=== PATIENT | female | born 1940 | race Caucasian/White ===

== ENCOUNTER → 2016-07-24 | Outpatient (CLI) | payer MEDICARE, BC ==
[~2016-07-24] MED LIST: CALCIUM1 CAP PO; DULCOLAX5 MG PO; HCTZ; MULTIPLE VITAMI1 TAB PO; VESICARE5 MG PO; VITAMIN C BUFF500 MG PO
== END ==
LOC: MC.RAD 13:20
DX: Z12.31 Encounter for screening mammogram for malignant neoplasm of breast (principal)

== ENCOUNTER → 2017-07-27 | Outpatient (CLI) | payer MEDICARE, BC | LOC: MC.RAD 14:32 | DX: Z12.31 Encounter for screening mammogram for malignant neoplasm of breast (principal) ==

== ENCOUNTER 2017-09-20 08:00 | Outpatient (RCR) | payer MEDICARE, BC ==
[2017-09-14 13:44] VITALS: BP 131/48; PULSE 55; TEMP 97.8
[2017-09-15 11:59] VITALS: BP 127/52; PULSE 53; TEMP 97.9
[2017-09-16 09:53] VITALS: BP 138/51; PULSE 58; TEMP 97.1
[2017-09-17 07:59] VITALS: BP 130/50; PULSE 74; TEMP 98
[2017-09-18 08:01] VITALS: BP 137/51; PULSE 51
[2017-09-19 08:59] VITALS: BP 123/48; PULSE 55; TEMP 98.4
[~2017-09-20] VITALS: Ht 165.1 cm; Wt 62.5 kg
[~2017-09-20 08:00] MED LIST changes: +CRANBERRY450 MG PO; -HCTZ; +HCTZ 25MG TAB25 MG PO; +MIRALAX PA17 GM/Dose PO; +NORVASC 5MG5 MG/TAB PO; +PRINIVIL5 MG PO; +PROBIOTIC FORMU1 CAP PO
[2017-09-20 08:01] VITALS: BP 122/52; PULSE 50; TEMP 97.6
== END 2017-09-20 09:31 | disposition home or self-care (01) ==
LOC: EUO 08:00
DX: N39.0 Urinary tract infection, site not specified (principal)
CPT/HCPCS: J1335; J7050

== ENCOUNTER → 2017-11-19 | Outpatient (CLI) | payer MEDICARE, BC | LOC: COL.RAD 11-13 08:15 | DX: N30.20 Other chronic cystitis without hematuria (principal) ==

== ENCOUNTER → 2018-09-02 | Outpatient (CLI) | payer MEDICARE, BC | LOC: MC.RAD 11:15 | DX: Z12.31 Encounter for screening mammogram for malignant neoplasm of breast (principal) ==

== ENCOUNTER 2019-03-17 14:00 | Outpatient (CLI) | payer MEDICARE, BC ==
[~2019-03-17] VITALS: Ht 165.1 cm; Wt 63.0 kg
[~2019-03-17 14:00] MED LIST changes: +CALCIUM 600MG+D1 TAB PO; -CALCIUM1 CAP PO
[2019-03-17 14:12] VITALS: BP 142/53; PULSE 58; TEMP 97.4
[2019-03-17] MEDS ORDERED: ARICEPT 5MG PO (14:17)
[2019-03-17] MEDS ORDERED: ESTRACE0.1 MG/GM VG (14:20)
[2019-03-17] MEDS ORDERED: NORVASC2.5 MG PO (14:21)
--- NOTE | 2019-03-17 14:45 | NUR ---
Pt gerry Prolia well. Pt discharged per ambulation.
== END 2019-03-17 14:46 | disposition home or self-care (01) ==
LOC: EUO 14:00
DX: M81.0 Age-related osteoporosis without current pathological fracture (principal)
CPT/HCPCS: J0897

== ENCOUNTER 2019-08-31 14:32 | Outpatient (CLI) | payer MEDICARE, BC ==
[~2019-08-31] VITALS: Ht 165.1 cm; Wt 63.7 kg
[~2019-08-31 14:32] MED LIST changes: +ARICEPT 5MG PO; +ESTRACE0.1 MG/GM VG; +MULTIPLE VITAMI1 TA5 PO; -MULTIPLE VITAMI1 TAB PO; +NORVASC2.5 MG PO
[2019-08-31] MEDS ORDERED: BACTRIM DS 8001 TAB PO (15:18)
[2019-08-31 15:19] VITALS: BP 182/62; PULSE 57; TEMP 98.1
== END 2019-08-31 16:18 | disposition home or self-care (01) ==
LOC: EUO 14:32
DX: M81.0 Age-related osteoporosis without current pathological fracture (principal)
CPT/HCPCS: J0897

== ENCOUNTER → 2019-10-10 | Outpatient (CLI) | payer MEDICARE, BC ==
[~2019-10-10] MED LIST changes: +BACTRIM DS 8001 TAB PO
== END ==
LOC: MC.RAD 13:28
DX: Z12.31 Encounter for screening mammogram for malignant neoplasm of breast (principal)

== ENCOUNTER 2020-02-15 17:44 | Emergency (ER) | payer MEDICARE, BC ==
[~2020-02-15] VITALS: Ht 165.1 cm; Wt 61.4 kg
[2020-02-15 18:21] VITALS: TEMP 97.4
[2020-02-15 20:43] VITALS: BP 106/88; PULSE 80
== END 2020-02-15 20:43 | disposition home or self-care (01) ==
LOC: COL.ER 17:44
DX: K59.03 Drug induced constipation (principal); T40.2X5A Adverse effect of other opioids, initial encounter; I10 Essential (primary) hypertension; Z96.653 Presence of artificial knee joint, bilateral; Z88.1 Allergy status to other antibiotic agents
CPT/HCPCS: J7030

== ENCOUNTER 2020-03-15 11:18 | Outpatient (CLI) | payer MEDICARE, BC ==
[~2020-03-15] VITALS: Ht 165.1 cm; Wt 60.8 kg
[2020-03-15] MEDS ORDERED: PRINCIPEN500 MG PO (11:37)
[2020-03-15 11:44] VITALS: BP 130/78; PULSE 67; TEMP 97.7
== END 2020-03-15 12:04 | disposition home or self-care (01) ==
LOC: EUO 11:18
DX: M81.0 Age-related osteoporosis without current pathological fracture (principal)
CPT/HCPCS: J0897

== ENCOUNTER 2020-09-12 15:12 | Outpatient (CLI) | payer MEDICARE, BC ==
[~2020-09-12] VITALS: Ht 165.1 cm; Wt 64.0 kg
[~2020-09-12 15:12] MED LIST changes: +PRINCIPEN500 MG PO
[2020-09-12 15:52] VITALS: BP 125/65; PULSE 52; TEMP 97.7
== END 2020-09-12 15:53 | disposition home or self-care (01) ==
LOC: EUO 15:12
DX: M81.0 Age-related osteoporosis without current pathological fracture (principal)
CPT/HCPCS: J0897

== ENCOUNTER → 2020-11-06 | Outpatient (CLI) | payer MEDICARE, BC | LOC: MC.RAD 10-10 13:30 | DX: Z12.31 Encounter for screening mammogram for malignant neoplasm of breast (principal) ==

== ENCOUNTER 2021-03-25 15:59 | Outpatient (CLI) | payer MEDICARE, BC ==
[~2021-03-25] VITALS: Ht 165.1 cm; Wt 67.8 kg
[2021-03-25 16:11] VITALS: BP 145/70; PULSE 61; TEMP 97.6
== END 2021-03-27 10:18 ==
LOC: EUO 15:59
DX: M81.0 Age-related osteoporosis without current pathological fracture (principal)
CPT/HCPCS: J0897

== ENCOUNTER → 2021-07-15 | Outpatient (CLI) | payer MEDICARE, BC | LOC: COL.LAB 10:05 | DX: Z01.812 Encounter for preprocedural laboratory examination (principal); Z20.822 Contact with and (suspected) exposure to COVID-19 ==

== ENCOUNTER 2021-09-25 15:06 | Outpatient (CLI) | payer MEDICARE, BC ==
[~2021-09-25] VITALS: Ht 165.1 cm; Wt 67.7 kg
[2021-09-25 15:31] VITALS: BP 140/71; PULSE 61; TEMP 97.4
== END 2021-09-25 17:23 ==
LOC: EUO 15:06
DX: M81.0 Age-related osteoporosis without current pathological fracture (principal)
CPT/HCPCS: J0897

== ENCOUNTER → 2021-12-10 | Outpatient (CLI) | payer MEDICARE, BC | LOC: MC.RAD 13:52 | DX: Z12.31 Encounter for screening mammogram for malignant neoplasm of breast (principal); N64.89 Other specified disorders of breast ==

== ENCOUNTER → 2021-12-18 | Outpatient (CLI) | payer MEDICARE, BC | LOC: MC.RAD 13:52 | DX: R92.2 Inconclusive mammogram (principal); R92.8 Other abnormal and inconclusive findings on diagnostic imaging of breast ==

== ENCOUNTER → 2022-07-28 | Outpatient (CLI) | payer MEDICARE, BC | LOC: MC.RAD 13:57 | DX: R92.8 Other abnormal and inconclusive findings on diagnostic imaging of breast (principal) ==

== ENCOUNTER 2022-07-30 15:02 | Outpatient (CLI) | payer MEDICARE, BC ==
[~2022-07-30] VITALS: Ht 165.1 cm; Wt 67.2 kg
[2022-07-30 15:33] VITALS: BP 133/81; PULSE 58; TEMP 97.8
--- NOTE | 2022-07-30 15:44 | NUR ---
pt discharged at approx 1540. [facility] she tolerated her injection well and was free from complaints or concerns at time of discharge. her VS were within normal limits and she tolerated PO fluids before and after injection.
== END 2022-07-30 15:40 | disposition home or self-care (01) ==
LOC: EUO 15:02
DX: M81.0 Age-related osteoporosis without current pathological fracture (principal)
CPT/HCPCS: J0897

== ENCOUNTER 2023-02-04 14:56 | Outpatient (CLI) | payer MEDICARE, BC ==
[~2023-02-04] VITALS: Ht 165.1 cm; Wt 66.5 kg
[2023-02-04 15:10] VITALS: BP 157/77; PULSE 60; TEMP 97.7
--- NOTE | 2023-02-04 15:21 | NUR ---
pt tolerated prolia injection well. vs remained within normal limits. pt ambulated independently following injection. pt free from acute concerns and complaints at time of discharge.
== END 2023-02-04 15:22 | disposition home or self-care (01) ==
LOC: EUO 14:56
DX: M81.0 Age-related osteoporosis without current pathological fracture (principal)
CPT/HCPCS: J0897

== ENCOUNTER 2023-08-21 11:36 | Outpatient (CLI) | payer MEDICARE, BC ==
[~2023-08-21] VITALS: Ht 165.1 cm; Wt 65.1 kg
[2023-08-21 11:44] VITALS: BP 160/65; PULSE 64; TEMP 98
[2023-08-21] MEDS ORDERED: VIVLODEX5 MG PO (11:48)
[2023-08-21] MEDS ORDERED: Denosumab 60 MG/ML SYRINGE SQ ONE (12:00)
--- NOTE | 2023-08-21 12:08 | NUR ---
PT TOLERATED INJECTION WELL. VS REMAINED WITHIN NORMAL LIMITS AND PT FREE FROM ACUTE CONCERNS AND COMPLAINTS UPON DISCHARGE.
== END 2023-08-21 12:08 | disposition home or self-care (01) ==
LOC: EUO 11:36
DX: M81.0 Age-related osteoporosis without current pathological fracture (principal)
CPT/HCPCS: J0897

== ENCOUNTER 2024-02-22 10:52 | Outpatient (CLI) | payer MEDICARE, BC ==
[~2024-02-22] VITALS: Ht 165.1 cm; Wt 65.0 kg
[~2024-02-22 10:52] MED LIST changes: +VIVLODEX5 MG PO
[2024-02-22 11:18] VITALS: BP 154/71; PULSE 06; TEMP 97.5
[2024-02-22] MEDS ORDERED: Denosumab 60 MG/ML SYRINGE SQ ONE (11:30)
--- NOTE | 2024-02-22 11:40 | NUR ---
PT TOLERATED INJECTION WELL. VS REMAINED WITHIN NORMAL LIMITS. PT ESCORTED BACK TO MAIN LOBBY BY THIS RN. PT FREE FROM ACUTE CONCERNS AND COMPLAINTS UPON DISCHARGE.
== END 2024-02-22 11:43 | disposition home or self-care (01) ==
LOC: EUO 10:52
DX: M81.0 Age-related osteoporosis without current pathological fracture (principal)
CPT/HCPCS: J0897